=== PATIENT | male | born 1990 | race Caucasian/White ===

== ENCOUNTER 2020-02-16 07:16 | Emergency (ER) | payer MEDICAID ==
[~2020-02-16] VITALS: Ht 172.7 cm; Wt 87.0 kg
[2020-02-16] MEDS ORDERED: IBUPROFEN 600MG TABLET PO ONE (08:15)
[2020-02-16] MEDS ORDERED: SODIUM CHLORIDE 0.9% 1,000 ML IV ONE (09:15)
[2020-02-16 10:27] LABS: BASOPHILS % 0.5 % (0.0-2.0); EOSINOPHILS % 0.2 % (0.0-5.0); HEMATOCRIT. 50.4 % (42.0-52.0); HEMOGLOBIN. 17.5 g/dL (14.0-18.0); MEAN CORPUSCULAR HEMOGLOBIN 31.6 pg (28.0-32.0); MEAN CORPUSCULAR VOLUME 91.2 fL (80.0-94.0); MEAN PLATELET VOLUME 10.8 fl (7.4-10.4); MONOCYTES % 8.7 % (2.0-8.0); NEUTROPHILS % 79.6 % (40.0-76.0); PLATELET 143 x1000/uL (130-400); RED BLOOD CELL COUNT 5.53 mill/uL (4.7-6.1)
[2020-02-16 10:33] LABS: CHLORIDE 102 mEq/L (98-107)
[2020-02-16 11:30] VITALS: BP 122/80
== END 2020-02-16 11:46 | disposition home or self-care (01) ==
LOC: ER 07:16
DX: B34.9 Viral infection, unspecified (principal); F17.200 Nicotine dependence, unspecified, uncomplicated
CPT/HCPCS: 36415; 80053; 85025; 93005; 99284; J7030